=== PATIENT | female | born 1985 | race Caucasian/White ===

== ENCOUNTER 2020-08-22 08:17 | Outpatient (CLI) | payer BC ==
[2020-08-22 08:53] LABS: BUN - BLOOD UREA NITROGEN 14 mg/dL (6-20); CARBON DIOXIDE - CO2 26 mmol/L (21-32); CHLORIDE 102 mmol/L (101-111); CHOL/HDL RATIO 2.8 (<4.4); CHOLESTEROL 181 mg/dL; CREATININE 0.8 mg/dL (0.4-1.0); GLUCOSE 110 mg/dL (70-100); HDL CHOLESTEROL 65 mg/dL; LDL CHOLESTEROL,CALCULATED 103 mg/dL; LDL/HDL RATIO 1.6 (<4.4); SODIUM 137 mmol/L (135-145); VLDL CHOLESTEROL 13 mg/dL
== END 2020-08-22 08:18 | disposition home or self-care (01) ==
LOC: LAB 08:17
PROVIDERS: ATTEND Internal Medicine Cardiovascular Disease
DX: Z23 Encounter for immunization (principal)
CPT/HCPCS: 36415; 80048; 80061; 83721

== ENCOUNTER 2020-09-19 10:26 | Outpatient (CLI) | payer BC | END 2020-09-19 10:27 | disposition home or self-care (01) | LOC: DI 10:26 | PROVIDERS: ATTEND Internal Medicine Cardiovascular Disease | DX: I35.1 Nonrheumatic aortic (valve) insufficiency (principal); I25.42 Coronary artery dissection | CPT/HCPCS: 93306 ==

== ENCOUNTER 2021-01-10 11:19 | Outpatient (CLI) | payer BC ==
--- NOTE | 2021-01-10 13:04 | XRAY Report ---
PROCEDURE: Shoulder 2 View RT INDICATIONS: right shoulder pain TECHNIQUE: 2 views of the shoulder were acquired. COMPARISON: None. FINDINGS: Bones: No fractures or dislocations. Mild focal cortical clavicular joint degenerative change can be seen. No suspicious bony lesions. Visualized ribs appear intact. Soft tissues: No suspicious soft tissue calcifications. The visualized lung demonstrates a normal a ppearance. IMPRESSION: Shoulder plain films within normal limits, with mild acromioclavicular joint degenerativ e change noted. If it would be helpful for clinical management decision making, please consider a dedicated shoulder MRI for further evaluation (assuming that there is no contraindication). Reviewed by: Michael Prince MD on 01/10/2021 12:03 PM [place] Approved by: Michael Prince MD on 01/10/2021 12:03 PM [place] Station ID: [id number]
== END 2021-01-10 11:20 | disposition home or self-care (01) ==
LOC: DI.N 11:19
PROVIDERS: ATTEND Registered Nurse
DX: M19.012 Primary osteoarthritis, left shoulder (principal)

== ENCOUNTER 2021-06-04 08:41 | Emergency (ER) | payer BC ==
--- NOTE | 2021-06-04 08:47 | ED Physician Documentation ---
PD HPI CHEST PAIN - Stated complaint Stated Complaint: ARM/JAW PX,SWEATING - History obtained from History obtained from: Patient - History of Present Illness Timing - onset: How many days ago (2) Timing - onset during: Light activity (she had left arm and jaw pain/aching 2 days ago for most of the day. Improved yesterday but overnight had feeling of some anxiety/dyspnea. Chest discomfort not sharp nor pleuritic. Has had NSTEMI due to coronary artery dissection 2018. She wants to ensure not cardiac. She feels possibly anxiety sxs.) Timing - duration: Days (2) Timing - details: Abrupt onset, Now resolved Quality: Pressure, Aching. No: Sharp, Tearing, Like prior ACS Location: Substernal, Left shoulder/arm, Left neck Radiation: Neck, Left upper extremity Associated symptoms: No: Shortness of air, Nausea, Vomiting, Feeling faint / dizzy, Palpitations, Cough Similar symptoms before: Diagnosis (not exactly same symptoms, but had chest pain with [place] few years ago.) Recently seen: Not recently seen Review of Systems Constitutional: denies: Fever, Chills Nose: denies: Rhinorrhea / runny nose, Congestion Throat: denies: Sore throat Respiratory: denies: Cough GI: denies: Abdominal Pain, Nausea, Vomiting Skin: denies: Rash, Lesions PD PAST MEDICAL HISTORY - Past Medical History Cardiovascular: [place] Respiratory: None Neuro: None Endocrine/Autoimmune: None - Present Medications Home Medications: Ambulatory Orders Medication Instructions Recorded Confirmed Aspirin Chewable [St Ton 81 mg PO DAILY 06/04/21 06/04/21 Aspirin] Carvedilol [Coreg] 25 mg PO DAILY 06/04/21 06/04/21 lisinopriL [Zestril] 5 mg PO DAILY 06/04/21 06/04/21 - Allergies Allergies/Adverse Reactions: Allergies Allergy/AdvReac Type Severity Reaction Status Date / Time metoclopramide [From Reglan] Allergy Unknown Verified 06/04/21 08:55 - Living Situation Living Situation: reports: With spouse/s.o. Living Arrangement: reports: At home - Social History Does the pt smoke?: No Does the pt drink ETOH?: No Does the pt have substance abuse?: No PD ED PE NORMAL - Vitals Vital signs reviewed: Yes - General General: Alert and oriented X 3, No acute distress, Well developed/nourished - HEENT HEENT: Pharynx benign - Neck Neck: Supple, no meningeal sign, No adenopathy - Cardiac Cardiac: RRR, No murmur - Respiratory Respiratory: Clear bilaterally, Other (no chestwall tenderness) - Abdomen Abdomen: Soft, Non tender - Derm Derm: Normal color, Warm and dry - Extremities Extremities: Normal ROM s pain, No edema, No calf tenderness / cord - Neuro Neuro: Alert and oriented X 3, No motor deficit, Normal speech Results - Vitals Vitals: Vital Signs - 24 hr 06/04/21 06/04/21 06/04/21 08:52 09:36 10:29 Temperature 36.8 C Heart Rate 99 77 75 Respiratory 16 16 13 Rate Blood Pressure 140/108 H 125/94 H 124/76 O2 Saturation 100 100 98 Oxygen O2 Source Room air - EKG (time done) 08:47 Rate: Rate (enter#) (93) Rhythm: NSR [place]: Normal Intervals: Normal MS QRS: Normal Ischemia: Q waves (anterior c/w prior [place].). No: ST elevation c/w ischemia, ST depression Compare to prior EKG: Old EKG unavailable - Labs Labs: Laboratory Tests 06/04/21 06/04/21 06/04/21 09:22 09:22 09:22 WBC 7.5 RBC 4.63 Hgb 14.2 Hct 41.6 MCV 89.8 MCH 30.7 MCHC 34.1 RDW 11.7 L Plt Count 227 MPV 10.9 H Neut # (Auto) 5.4 Lymph # (Auto) 1.5 Shannon # (Auto) 0.5 Eos # (Auto) 0.1 Baso # (Auto) 0.1 Absolute Nucleated RBC 0.00 Nucleated RBC % 0.0 Sodium 139 Potassium 4.0 Chloride 105 Carbon Dioxide 24 Anion Gap 10.0 BUN 15 Creatinine 0.7 Estimated GFR (MDRD) 96 Glucose 136 H Calcium 9.4 Magnesium 2.0 Total Bilirubin 0.5 AST 16 ALT 14 Alkaline Phosphatase 58 Troponin I High Sens < 2.3 L Total Protein 7.8 Albumin 4.8 Globulin 3.0 Albumin/Globulin Ratio 1.6 Lipase 35 - Rads (name of study) chest xray Radiology: Prelim report reviewed (no acute process), See rad report PD MEDICAL DECISION MAKING - ED course Complexity details: reviewed results (no findings of ACS nor CHF. ), considered differential, d/w patient Departure - Departure Disposition: 01 Home, Self Care Clinical Impression: Arm pain Qualifiers: Laterality: right Qualified Code(s): M79.601 - Pain in right arm Clinical Impression: (Ruled Out): Myocardial infarction Condition: Stable Record reviewed to determine appropriate education?: Yes Follow-Up: Juliann Broines ARNP [Primary Care Provider] - Adama Regalado MD [Provider Admit Priv/Credential] - Comments: Your chest x-ray, EKG, blood tests are normal with specific blood tests being your troponin was well within the normal range. Your kidney function is good with a GFR of 96. No other abnormality on your blood tests. No signs of acute process such as heart muscle injury, pneumonia, fluid in the lungs. Your arm pain would therefore seem likely musculoskeletal. You state your blood pressures been slightly higher than your baseline over the past couple of weeks. You could increase your lisinopril from 5 to 10 mg daily until your follow-up appointment with Dr. Regalado this coming month. Carvedilol the same dose. You could add in some Tylenol if needed for discomfort. Discharge Date/Time: 06/04/21 10:37
--- NOTE | 2021-06-04 09:28 | XRAY Report ---
PROCEDURE: Chest 1 View X-Ray INDICATIONS: Chest pain TECHNIQUE: One view of the chest was acquired. COMPARISON: None. FINDINGS: Surgical changes and devices: None. Lungs and pleura: No pleural effusions or pneumothorax. Lungs are clear. Mediastinum: Mediastinal contours appear normal. Heart size is normal. Bones and chest wall: No suspicious bony lesions. Overlying soft tissues appear unremarkable. IMPRESSION: No acute cardiopulmonary pathology. Reviewed by: Hans Stevenson MD on 06/04/2021 9:27 AM PDT Approved by: Hans Stevenson MD on 06/04/2021 9:27 AM PDT Station ID: [id number]
[2021-06-04 09:29] LABS: BASOPHILS # (AUTO) 0.1 10^3/uL (0.0-0.1); BASOPHILS % (AUTO) 0.7 %; EOSINOPHILS # (AUTO) 0.1 10^3/uL (0.0-0.7); EOSINOPHILS % (AUTO) 1.3 %; HCT - HEMATOCRIT 41.6 % (37.0-47.0); HGB - HEMOGLOBIN 14.2 g/dL (12.0-16.0); LYMPHOCYTES # (AUTO) 1.5 10^3/uL (1.5-3.5); LYMPHOCYTES % (AUTO) 20.5 %; MEAN CORPUSCULAR HEMOGLOBIN 30.7 pg (27.0-31.0); MEAN CORPUSCULAR HGB CONC 34.1 g/dL (32.0-36.0); MEAN CORPUSCULAR VOLUME 89.8 fL (81.0-99.0); MEAN PLATELET VOLUME 10.9 fL (7.9-10.8); MONOCYTES # (AUTO) 0.5 10^3/uL (0.0-1.0); MONOCYTES % (AUTO) 6.3 %; NEUTROPHILS # (AUTO) 5.4 10^3/uL (1.5-6.6); NEUTROPHILS % (AUTO) 71.1 %; PLT - PLATELET COUNT 227 10^3/uL (130-450); RED BLOOD COUNT 4.63 10^6/uL (4.20-5.40); RED CELL DISTRIBUTION WIDTH 11.7 % (12.0-15.0); WHITE BLOOD COUNT 7.5 x10^3/uL (4.8-10.8)
[2021-06-04 09:47] LABS: ALBUMIN 4.8 g/dL (3.2-5.5); ALBUMIN/GLOBULIN RATIO 1.6 (1.0-2.2); BILIRUBIN,TOTAL 0.5 mg/dL (0.2-1.0); CALCIUM 9.4 mg/dL (8.5-10.3); CREATININE 0.7 mg/dL (0.4-1.0); TOTAL PROTEIN 7.8 g/dL (6.7-8.2)
[2021-06-04 10:30] VITALS: BP 124/76
== END 2021-06-04 10:37 | disposition home or self-care (01) ==
LOC: ED 08:41
DX: M79.601 Pain in right arm (principal); I10 Essential (primary) hypertension
CPT/HCPCS: 36415; 80053; 83690; 83735; 84484; 85025; 93005; 99283; 99284

== ENCOUNTER 2021-07-10 07:21 | Outpatient (CLI) | payer BC ==
[2021-07-10 07:56] LABS: BASOPHILS # (AUTO) 0.1 10^3/uL (0.0-0.1); BASOPHILS % (AUTO) 0.8 %; EOSINOPHILS # (AUTO) 0.2 10^3/uL (0.0-0.7); EOSINOPHILS % (AUTO) 2.5 %; HCT - HEMATOCRIT 43.9 % (37.0-47.0); LYMPHOCYTES # (AUTO) 2.1 10^3/uL (1.5-3.5); MEAN CORPUSCULAR HEMOGLOBIN 30.1 pg (27.0-31.0); MEAN CORPUSCULAR HGB CONC 34.2 g/dL (32.0-36.0); MEAN CORPUSCULAR VOLUME 88.2 fL (81.0-99.0); MEAN PLATELET VOLUME 10.9 fL (7.9-10.8); MONOCYTES # (AUTO) 0.6 10^3/uL (0.0-1.0); MONOCYTES % (AUTO) 8.7 %; NEUTROPHILS # (AUTO) 4.2 10^3/uL (1.5-6.6); NEUTROPHILS % (AUTO) 58.9 %; PLT - PLATELET COUNT 249 10^3/uL (130-450); RED BLOOD COUNT 4.98 10^6/uL (4.20-5.40); RED CELL DISTRIBUTION WIDTH 11.7 % (12.0-15.0); WHITE BLOOD COUNT 7.1 x10^3/uL (4.8-10.8)
[2021-07-10 08:01] LABS: ALBUMIN 4.9 g/dL (3.2-5.5); ALBUMIN/GLOBULIN RATIO 1.5 (1.0-2.2); CALCIUM 9.4 mg/dL (8.5-10.3); CREATININE 0.7 mg/dL (0.4-1.0); POTASSIUM 3.1 mmol/L (3.5-5.0); TOTAL PROTEIN 8.2 g/dL (6.7-8.2)
[2021-07-10 08:17] LABS: THYROID STIMULATING HORMONE 0.81 uIU/mL (0.34-5.60)
[2021-07-10 14:05] LABS: ESTIMATED AVERAGE GLUCOSE 108 mg/dL (70-100); HEMOGLOBIN A1c% 5.4 % (4.27-6.07)
== END 2021-07-10 07:22 | disposition home or self-care (01) ==
LOC: LAB 07:21
PROVIDERS: ATTEND Registered Nurse
DX: R73.9 Hyperglycemia, unspecified (principal); Z86.79 Personal history of other diseases of the circulatory system
CPT/HCPCS: 36415; 80053; 83036; 84443; 85025

== ENCOUNTER 2021-08-17 16:40 | Outpatient (CLI) | payer BC ==
[2021-08-17 17:15] LABS: CALCIUM 9.6 mg/dL (8.5-10.3); CREATININE 0.6 mg/dL (0.4-1.0); POTASSIUM 3.7 mmol/L (3.5-5.0)
== END 2021-08-17 16:41 | disposition home or self-care (01) ==
LOC: LAB 16:40
PROVIDERS: ATTEND Internal Medicine Cardiovascular Disease
DX: I10 Essential (primary) hypertension (principal)
CPT/HCPCS: 36415; 80048

== ENCOUNTER 2021-10-12 16:20 | Outpatient (CLI) | payer BC ==
[2021-10-12 16:39] LABS: CREATININE 0.8 mg/dL (0.4-1.0); POTASSIUM 3.6 mmol/L (3.5-5.0)
== END 2021-10-12 16:21 | disposition home or self-care (01) ==
LOC: LAB 16:20
PROVIDERS: ATTEND Internal Medicine Cardiovascular Disease
DX: I10 Essential (primary) hypertension (principal)
CPT/HCPCS: 36415; 80048

== ENCOUNTER 2021-10-25 14:13 | Outpatient (CLI) | payer BC ==
--- NOTE | 2021-10-25 14:42 | XRAY Report ---
PROCEDURE: Hip w/Pelvis 1V RT INDICATIONS: RIGHT GROIN PAIN TECHNIQUE: AP pelvis with lateral view of the right hip. COMPARISON: None. FINDINGS: Bones: No acute fractures or dislocations. Pelvic ring appears intact. No suspicious bony lesions. Soft tissues: The visualized bowel gas pattern is normal. No suspicious soft tissue calcifications. IMPRESSION: No acute osseous abnormality. If symptoms persist or there is continued clinical concern , further evaluation with MRI or CT may be helpful. Reviewed by: Chang Negro MD on 10/25/2021 2:40 PM PST Approved by: Chang Negro MD on 10/25/2021 2:40 PM PST Station ID: [id number]
--- NOTE | 2021-10-25 14:42 | XRAY Report ---
PROCEDURE: SI Joints INDICATIONS: RIGHT GROIN PAIN TECHNIQUE: 3 views of the sacroiliac joints were acquired. COMPARISON: None. FINDINGS: Bones: No bony erosions or ankylosis. No suspicious bony lesions. No acute fractures. Soft tissues: Overlying bowel gas pattern is normal. No suspicious soft tissue densities. IMPRESSION: No acute osseous abnormality. No signs of sacroiliitis. If symptoms persist or there is continued cli nical concern, further evaluation with MRI or CT may be helpful. Reviewed by: Chang Negro MD on 10/25/2021 2:40 PM PST Approved by: Chang Negro MD on 10/25/2021 2:40 PM PST Station ID: [id number]
== END 2021-10-25 14:14 | disposition home or self-care (01) ==
LOC: DI.N 14:13
PROVIDERS: ATTEND Family Medicine
DX: R10.31 Right lower quadrant pain (principal); M25.551 Pain in right hip